=== PATIENT | female | born 1995 | race American Indian/Alaskan Native ===

== ENCOUNTER 2017-04-01 15:25 | Emergency (ER) | payer MEDICAID, OTHER ==
[2017-04-01 15:46] VITALS: O2SAT 100
--- NOTE | 2017-04-01 16:00 | ED PDOC ---
Arrival/HPI - General Chief Complaint: Female Genitourinary Time Seen by Provider: 04/01/17 15:49 Historian: Patient - History of Present Illness Narrative History of Present Illness (Text): 04/01/17 15:49 21 y/o female, pmh including UTI, allergic to motrin, , LMP 01/04/2017, found out she was about 3 days ago, started to have lower back pain yesterday and vaginal bleeding today with no fall or trauma. Aching pain, cramping sensation, had 3 pads change earlier today, no fever or chills, no chest pain or shortness of breath, no night sweat, no dizziness, no other medical or psychological complaints. Past Medical History - Provider Review Nursing Documentation Reviewed: Yes - Infectious Disease Hx of Infectious Diseases: None - Tetanus Immunization Tetanus Immunization: Unknown - Cardiac Hx Cardiac Disorders: No - Pulmonary Hx Respiratory Disorders: No - Neurological Hx Neurological Disorder: No HX Cerebrovascular Accident: No Hx Seizures: No - HEENT Hx HEENT Disorder: No - Renal Hx Renal Disorder: Yes (hydronephrosis) - Endocrine/Metabolic Hx Endocrine Disorders: No - Hematological/Oncological Hx Blood Disorders: No Hx Cancer: No - Integumentary Hx Dermatological Disorder: No - Musculoskeletal/Rheumatological Hx Musculoskeletal Disorders: No - Gastrointestinal Hx Gastrointestinal Disorders: No - Genitourinary/Gynecological Hx Genitourinary Disorders: No Hx Sexually Transmitted Diseases: No - Psychiatric Hx Depression: Yes Hx Emotional Abuse: No Hx Physical Abuse: No Hx Substance Use: No - Past Surgical History Past Surgical History: No Previous - Anesthesia Hx Anesthesia: No Hx Anesthesia Reactions: No Hx Malignant Hyperthermia: No - Suicidal Assessment Feels Threatened In Home Enviroment: No Family/Social History - Physician Review Nursing Documentation Reviewed: Yes Family/Social History: Unknown Family HX Smoking Status: Never Smoked Hx Alcohol Use: No Hx Substance Use: No Hx Substance Use Treatment: No Allergies/Home Meds Allergies/Adverse Reactions: Allergies ibuprofen Adverse Reaction (Verified 04/01/17 15:42) ANAPHYLAXIS Can not take due to kidney disease Review of Systems - Review of Systems Constitutional: absent: Fatigue, Fevers Eyes: absent: Vision Changes ENT: absent: Hearing Changes Respiratory: absent: SOB, Cough Cardiovascular: absent: Chest Pain Gastrointestinal: absent: Abdominal Pain, Nausea, Vomiting Genitourinary Female: Vaginal Discharge. absent: Dysuria, Frequency, Hematuria , Urine Output Changes, Vaginal Bleeding Musculoskeletal: Back Pain. absent: Arthralgias, Neck Pain, Joint Swelling, Myalgias Neurological: absent: Headache, Dizziness, Speech Changes, Facial Droop Physical Exam Vital Signs Reviewed: Yes Vital Signs Temp Pulse Resp BP Pulse Ox 04/01/17 15:43 97.9 F 89 17 129/74 100 Temperature: Afebrile Blood Pressure: Normal Pulse: Regular Respiratory Rate: Normal Appearance: Positive for: Well-Appearing, Non-Toxic, Comfortable Pain Distress: Mild Mental Status: Positive for: Alert and Oriented X 3 - Systems Exam Head: Present: Atraumatic, Normocephalic Pupils: Present: PERRL Extroacular Muscles: Present: EOMI Conjunctiva: Present: Normal Mouth: Present: Moist Mucous Membranes Neck: Present: Normal Range of Motion Respiratory/Chest: Present: Clear to Auscultation, Good Air Exchange. No: Respiratory Distress, Accessory Muscle Use Cardiovascular: Present: Regular Rate and Rhythm, Normal S1, S2. No: Murmurs Abdomen: Present: Normal Bowel Sounds. No: Tenderness, Distention, Peritoneal Signs, Rebound, Guarding Genitourinary/Pelvic Exam: Present: Normal External Genitalia, Cervical os Closed, Other (Female [place]: [facility]). No: Vaginal Discharge, Vaginal Bleeding, Vaginal Lesions, Adenexal Tenderness, Adenexal Mass, Cervical Motion Tendernes, Odor Back: Present: Normal Inspection. No: CVA Tenderness, Midline Tenderness, Paraspinal Tenderness, Decubitus Ulcer Upper Extremity: Present: Normal Inspection. No: Cyanosis, Edema Lower Extremity: Present: Normal Inspection. No: Edema Neurological: Present: GCS=15, Speech Normal, Motor Func Grossly Intact, Gait Normal, Memory Normal Skin: Present: Warm, Dry, Normal Color. No: Rashes Psychiatric: Present: Alert, Oriented x 3, Normal Insight, Normal Concentration Medical Decision Making ED Course and Treatment: 04/01/17 16:08 -labs/ua/beta hcg/type and screen -Transvaginal sonogram -tylenol -observe and reassess 04/01/17 18:37 -Labs are non-significant except Hgb 10.2 from 11.4, K+ 3.4, advised eat more red meat and eat more banana. -Beta hcg 717598, advised to repeat in 48 hours. -Sonogram show twins : IMPRESSION: Twin live intrauterine gestations with detected heart rates. The estimated date of delivery by ultrasound is 10/17/2017 and 10/22/2017 respectively and correspond with the clinical dates. -UA show +UTI, macrobid ordered. -Pt. does stand and heavy lifting at work which I advised her to stop and bed rest. -Discharge home with macrobid, tylenol, eat more bananas, no sexual activities and you will need pelvic rest, bed rest, elevate the leg, avoid lifting or carrying heavy objects, don't hold your urines and good hygiene, repeat beta hcg in 24-48 hours, follow up with your own pmd and obgyn within 2 days, return to the ER for any new or worsening signs or symptoms. - Lab Interpretations Lab Results: 04/01/17 14:25 04/01/17 14:25 Lab Results 04/01/17 16:30: Urine Color Yellow, Urine Appearance Sl cloudy, Urine pH 7.0, Ur Specific [place] 1.020, Urine Protein Trace H, Urine Glucose (UA) Negative, Urine Ketones Negative, Urine Blood Trace-lysed H, Urine Nitrate Negative, Urine Bilirubin Negative, Urine Urobilinogen 1.0 H, Ur Leukocyte Esterase Trace H, Urine RBC 2 - 5, Urine WBC 5 - 10, Ur Epithelial Cells 3 - 4, Urine Bacteria Mod 04/01/17 16:01: Blood Type O POSITIVE, Antibody Screen Negative, BBK History Checked Patient has bt 04/01/17 14:25: Beta HCG, Quant 747651.00 H 04/01/17 14:25: Sodium 137, Potassium 3.4 L, Chloride 106, Carbon Dioxide 23, Anion Gap 11, BUN 10, Creatinine 0.6, Est GFR ( Amer) > 60, Est GFR (Non- Af Amer) > 60, Random Glucose 75, Calcium 9.2, Total Bilirubin 0.4, AST 22, ALT 36, Alkaline Phosphatase 65, Total Protein 6.7, Albumin 3.5, Globulin 3.2, Albumin/Globulin Ratio 1.1 04/01/17 14:25: WBC 8.6, RBC 3.41 L, Hgb 10.2 L, Hct 29.9 L, MCV 87.7, MCH 29.9 , MCHC 34.1, RDW 15.6 H, Plt Count 267, MPV 9.7, Gran % 74.4 H, Lymph % (Auto) 16.8 L, [place] % (Auto) 7.4 H, Eos % (Auto) 1.2 L, Baso % (Auto) 0.2, Gran # 6.37 , Lymph # 1.4, [place] # 0.6, Eos # 0.1, Baso # 0.02 I have reviewed the lab results: Yes Interpretation: Abnormal lab values (Hgb 10.2 from 11.4, K+ 3.4, Beta hcg [id number] ) - RAD Interpretation Radiology Orders: 04/01/17 16:01 OB TRANSVAGINAL [US] Stat FINDINGS: UTERUS: Gestational sac: Twin intrauterine gestation. age (Ultrasound estimated): Twin A: 11 weeks and 4 days. heart rate is 159. Twin B: 10 weeks and 6 days. heart rate is 165. Johanne-gestational hemorrhage: None. Date of delivery (Ultrasound estimated) : Twin A: 10/17/2017 Twin B: 10/22/2017 Uterus measures 12.6 x 9.8 x 11.5 cm. Normal in size and appearance. CERVIX: Long and closed. No cervical abnormality seen. RIGHT OVARY: Not visualized. LEFT OVARY: Not visualized. FREE FLUID: None. OTHER FINDINGS: None. IMPRESSION: Twin live intrauterine gestations. The mean gestational age of Twin a is 11 weeks and 4 days and Twin B is 11 weeks and 6 days. The estimated date of delivery by ultrasound is 10/17/2017 and 10/22/2017 respectively and correspond with the clinical dates. Commercial Roofing Estimator: Radiologist - Medication Orders Current Medication Orders: Discontinued Medications Acetaminophen (Tylenol 325mg Tab) 650 mg PO STAT STA Stop: 04/01/17 16:02 Last Admin: 04/01/17 16:30 Dose: 650 mg Nitrofurantoin Macrocrystals (Macrobid) 100 mg PO STAT STA Stop: 04/01/17 17:03 Last Admin: 04/01/17 18:35 Dose: 100 mg - PA / RENAL TECHNICIAN / Resident Statement / has reviewed & agrees with the documentation as recorded. Disposition/Present on Arrival - Present on Arrival Any Indicators Present on Arrival: Yes History of DVT/PE: No History of Uncontrolled Diabetes: No Urinary Catheter: No History of Decub. Ulcer: No History Surgical Site Infection Following: None - Disposition Have Diagnosis and Disposition been Completed?: Yes Diagnosis: , Vaginal bleeding, UTI (urinary tract infection) Disposition: HOME/ ROUTINE Disposition Time: 16:09 Patient Plan: Discharge Patient Problems: Current Active Problems Problem Status Onset Acute Vaginal bleeding Acute Condition: GOOD Additional Instructions: -Discharge home with macrobid, tylenol, eat more bananas, no sexual activities and you will need pelvic rest, bed rest, elevate the leg, avoid lifting or carrying heavy objects, don't hold your urines and good hygiene, repeat beta hcg in 24-48 hours, follow up with your own pmd and obgyn within 2 days, return to the ER for any new or worsening signs or symptoms. Prescriptions: Acetaminophen [Tylenol 325mg tab] 2 tab PO QID PRN #30 tab PRN Reason: Other Nitrofurantoin Macrocrystals [Macrobid] 100 mg PO BID #14 cap Referrals: PCP,NO [Primary Care Provider] - Follow up with primary David Matthew MD [Staff Provider] - [place] up [place] [facility] [place] [facility] [place] - Follow up with primary Forms: [employer] ([place]), WORK NOTE
[2017-04-01 16:41] LABS: BASO # 0.02 K/mm3 (0.0-2.0); BASO % 0.2 % (0.0-3.0); EOS # 0.1 (0.0-0.7); EOS % 1.2 % (1.5-5.0); GRAN # 6.37 (1.4-6.5); GRAN % 74.4 % (50.0-68.0); HEMOGLOBIN 10.2 gm/dL (12.0-16.0); LYMPH # 1.4 (1.2-3.4); LYMPH % 16.8 % (22.0-35.0); MEAN CELL VOLUME 87.7 fL (80.0-105.0); MEAN CORPUSCULAR HEMOGLOBIN 29.9 pg (25.0-35.0); MEAN CORPUSCULAR HGB CONC 34.1 g/dl (31.0-37.0); MEAN PLATELET VOLUME 9.7 fl (7.0-11.0); MONO # 0.6 (0.1-0.6); MONO % 7.4 % (1.0-6.0); PLATELET COUNT 267 10^3/uL (120.0-450.0); RBC 3.41 10^6/uL (3.5-6.1); RED CELL DISTRIBUTION WIDTH 15.6 % (11.5-14.5); WHITE BLOOD COUNT 8.6 10^3/ul (4.5-11.0)
[2017-04-01 16:41] LABS: URINE BILIRUBIN NEGATIVE (NEGATIVE); URINE BLOOD TRACE-LYSED (NEGATIVE); URINE GLUCOSE (UA) NEGATIVE (NEGATIVE); URINE LEUKOCYTE ESTERASE TRACE Leu/uL (NEGATIVE); URINE NITRATE NEGATIVE (NEGATIVE); URINE PROTEIN TRACE mg/dL (<30 mg/dL)
[2017-04-01 16:56] LABS: URINE COLOR YELLOW (YELLOW)
[2017-04-01 16:58] LABS: URINE APPEARANCE SL CLOUDY (CLEAR)
[2017-04-01 17:02] LABS: ALB/GLOB RATIO 1.1 (1.1-1.8); ALBUMIN 3.5 g/dL (3.0-4.8); ALT/SGPT 36 U/L (7-56); AST/SGOT 22 U/L (15-39); BLOOD UREA NITROGEN 10 mg/dL (7-21); CALCIUM 9.2 mg/dL (8.4-10.5); GFR AFRICAN-AMERICAN > 60; GFR NON-AFRICAN AMERICAN > 60
[2017-04-01 17:10] LABS: URINE BACTERIA MOD (NEG)
--- NOTE | 2017-04-01 18:01 | US ---
PROCEDURE: OB Pelvic Ultrasound HISTORY: cramp and pain COMPARISON: None available. FINDINGS: UTERUS: Gestational sac: Twin intrauterine gestation. age (Ultrasound estimated): Twin A: 11 weeks and 4 days. heart rate is 159. Twin B: 10 weeks and 6 days. heart rate is 165. Johanne-gestational hemorrhage: None. Date of delivery (Ultrasound estimated) : Twin A: 10/17/2017 Twin B: 10/22/2017 Uterus measures 12.6 x 9.8 x 11.5 cm. Normal in size and appearance. CERVIX: Long and closed. No cervical abnormality seen. RIGHT OVARY: Not visualized. LEFT OVARY: Not visualized. FREE FLUID: None. OTHER FINDINGS: None. IMPRESSION: Twin live intrauterine gestations. The mean gestational age of Twin a is 11 weeks and 4 days and Twin B is 11 weeks and 6 days. The estimated date of delivery by ultrasound is 10/17/2017 and 10/22/2017 respectively and correspond with the clinical dates.
[2017-04-01 19:11] VITALS: BP 105/48; PULSE 75; RESP 18; TEMP 98.9
[2017-04-01 19:12] VITALS: BMI 25.8
== END 2017-04-01 19:15 | disposition home or self-care (01) ==
LOC: ED 15:25
DX: O23.31 Infections of other parts of urinary tract in pregnancy, first trimester (principal); O46.91 Antepartum hemorrhage, unspecified, first trimester; Z3A.11 11 weeks gestation of pregnancy

== ENCOUNTER 2017-04-21 09:04 | Emergency (ER) | payer MEDICAID ==
[2017-04-21 09:04] VITALS: BMI 25.8
[2017-04-21 09:13] VITALS: TEMP 98.4; O2SAT 100
[2017-04-21] MEDS ORDERED: Sodium Chloride 0.9% 1,000 ML IV SCH (09:30)
--- NOTE | 2017-04-21 10:01 | ED PDOC ---
Arrival/HPI - General Chief Complaint: Headache Time Seen by Provider: 04/21/17 09:17 Historian: Patient - History of Present Illness Narrative History of Present Illness (Text): 04/21/17 09:45 21 y/o female, pmh including brain aneurysm (as per patient she stated that she has brain aneurysm in 2013 radiology test), allergic to motrin, approx. 13 weeks with twins, c/o headache and dizziness x 1 week which she is concerning for bleeding from the brain. Pt. stated that she is scheduled for termination of on 05/27/17, no vaginal bleeding or pelvic cramp, no abdominal pain, no nausea or vomiting, no fever or chills, no dizziness, no change in vision, no palpitation, no urinary symptoms, no other medical or psychological complaints. Past Medical History - Provider Review Nursing Documentation Reviewed: Yes - Infectious Disease Hx of Infectious Diseases: None - Tetanus Immunization Tetanus Immunization: Unknown - Cardiac Hx Cardiac Disorders: No - Pulmonary Hx Respiratory Disorders: No - Neurological Hx Neurological Disorder: Yes Other/Comment: Brain Aneurysm - HEENT Hx HEENT Disorder: No - Renal Hx Renal Disorder: Yes (hydronephrosis) - Endocrine/Metabolic Hx Endocrine Disorders: No - Hematological/Oncological Hx Blood Disorders: No Hx Cancer: No - Integumentary Hx Dermatological Disorder: No - Musculoskeletal/Rheumatological Hx Musculoskeletal Disorders: No - Gastrointestinal Hx Gastrointestinal Disorders: No - Genitourinary/Gynecological Hx Genitourinary Disorders: No Hx Sexually Transmitted Diseases: No - Psychiatric Hx Depression: Yes Hx Emotional Abuse: No Hx Physical Abuse: No Hx Substance Use: No - Past Surgical History Past Surgical History: No Previous - Anesthesia Hx Anesthesia: No Hx Anesthesia Reactions: No Hx Malignant Hyperthermia: No - Suicidal Assessment Feels Threatened In Home Enviroment: No Family/Social History - Physician Review Nursing Documentation Reviewed: Yes Family/Social History: Unknown Family HX Smoking Status: Never Smoked Hx Alcohol Use: No Hx Substance Use: No Hx Substance Use Treatment: No Allergies/Home Meds Allergies/Adverse Reactions: Allergies ibuprofen Adverse Reaction (Verified 04/01/17 15:42) ANAPHYLAXIS Can not take due to kidney disease Home Medications: Home Meds Medication Instructions Recorded Confirmed Pnv No.95/Ferrous Fum/Folic AC 1 tab PO DAILY 04/21/17 04/21/17 [Prenavite] Review of Systems - Review of Systems Constitutional: absent: Fatigue, Fevers Eyes: absent: Vision Changes ENT: absent: Hearing Changes Respiratory: absent: SOB, Cough Cardiovascular: absent: Chest Pain Gastrointestinal: absent: Abdominal Pain, Diarrhea, Nausea, Vomiting Skin: absent: Rash, Pruritis Neurological: Headache, Dizziness. absent: Gait Changes, Speech Changes, Facial Droop Physical Exam Vital Signs Reviewed: Yes Vital Signs Temp Pulse Resp BP Pulse Ox 04/21/17 12:12 79 18 116/75 100 04/21/17 11:04 89 18 112/71 100 04/21/17 09:13 98.4 F 98 H 16 114/75 100 Temperature: Afebrile Blood Pressure: Normal Pulse: Regular Respiratory Rate: Normal Appearance: Positive for: Well-Appearing, Non-Toxic Pain Distress: Moderate Mental Status: Positive for: Alert and Oriented X 3 - Systems Exam Head: Present: Atraumatic, Normocephalic, Other (no temporal artery tenderness) . No: Tenderness, Contusion, Swelling, Ecchymosis, Abrasion, Laceration Pupils: Present: PERRL Extroacular Muscles: Present: EOMI Conjunctiva: Present: Normal Ears: Present: NORMAL TM, Normal Canal Mouth: Present: Moist Mucous Membranes Pharnyx: No: ERYTHEMA, EXUDATE, TONSILS ENLARGED Neck: Present: Normal Range of Motion, Trachea Midline. No: Meningeal Signs, MIDLINE TENDERNESS, Lymphadenopathy Respiratory/Chest: Present: Clear to Auscultation, Good Air Exchange. No: Respiratory Distress, Accessory Muscle Use Cardiovascular: Present: Regular Rate and Rhythm, Normal S1, S2. No: Murmurs Abdomen: Present: Normal Bowel Sounds. No: Tenderness, Distention, Peritoneal Signs Back: Present: Normal Inspection Upper Extremity: Present: Normal Inspection. No: Cyanosis, Edema Lower Extremity: Present: Normal Inspection. No: Edema Neurological: Present: GCS=15, Speech Normal, Motor Func Grossly Intact, Gait Normal, Memory Normal, Other (no drift) Skin: Present: Warm, Dry, Normal Color. No: Rashes Psychiatric: Present: Alert, Oriented x 3, Normal Insight, Normal Concentration Medical Decision Making ED Course and Treatment: 04/21/17 09:45 -I discussed with Dr. Jose which is the radiologist suggest CT head without contrast is best to rule out bleed but there is risk for termination and /genetic defects, risk temination/genetic defect/pain/ and risk including rule out head bleed discussed with the patient which she wants to proceed with CT head without contrast, general consent obtained, discussed with the CT head. Entire situation witnessed by the BICYCLE REPAIR TECHNICIAN Suzi. I discussed with Dr. Calle as well and agreed with the patient's decision. -Labs/ua -CT head -IVF/benadryl/tylenol -Observe and reassess 04/21/17 12:29 -labs are non-significant except beta hcg 79736 (approx. 12-16 weeks base on the lab reference) and glucose 68 (asymptomatic, food and juice given) -UA show +UTI -CT Head show no acute intracranial finding. -Headache resolved with the medication given -Discharge home with macrobid, tylenol, stay hydrated, bed rest, follow up with your own pmd and obgyn within 2 days, return to the ER for any new or worsening signs or symptoms. - Lab Interpretations Lab Results: 04/21/17 10:06 04/21/17 11:30 Lab Results 04/21/17 11:30: Sodium 138, Potassium 3.9, Chloride 107, Carbon Dioxide 23, Anion Gap 12, BUN 8, Creatinine 0.5, Est GFR ( Amer) > 60, Est GFR (Non- Af Amer) > 60, Random Glucose 68 L, Calcium 9.2, Total Bilirubin 0.3, AST 16, ALT 30, Alkaline Phosphatase 96, Total Protein 6.8, Albumin 3.6, Globulin 3.1, Albumin/Globulin Ratio 1.2 04/21/17 10:06: Beta HCG, Quant [id number] H 04/21/17 10:06: Urine Color Yellow, Urine Appearance Sl cloudy, Urine pH 6.5, Ur Specific [place] 1.020, Urine Protein 30 H, Urine Glucose (UA) Negative, Urine Ketones Negative, Urine Blood Negative, Urine Nitrate Negative, Urine Bilirubin Negative, Urine Urobilinogen 1.0 H, Ur Leukocyte Esterase Small H, Urine RBC Negative, Urine WBC Tntc, Ur Epithelial Cells 4 - 5, Urine Bacteria Many 04/21/17 10:06: WBC 6.6 D, RBC 3.60, Hgb 10.7 L, Hct 31.9 L, MCV 88.6, MCH 29.7 , MCHC 33.5, RDW 15.1 H, Plt Count 280, MPV 10.6, Gran % 71.3 H, Lymph % (Auto) 18.5 L, [place] % (Auto) 7.8 H, Eos % (Auto) 2.1, Baso % (Auto) 0.3, Gran # 4.67, Lymph # 1.2, [place] # 0.5, Eos # 0.1, Baso # 0.02 I have reviewed the lab results: Yes Interpretation: Abnormal lab values (+UTI, beta hcg 32721 (approx. 12-16 weeks base on the lab reference)) - RAD Interpretation Radiology Orders: 04/21/17 09:41 HEAD W/O CONTRAST [CT] Stat No acute intracranial findings. Cop: Radiologist - Medication Orders Current Medication Orders: Sodium Chloride (Sodium Chloride 0.9%) 1,000 mls @ 200 mls/hr IV .Q5H AMY Last Admin: 04/21/17 10:08 Dose: 200 mls/hr Discontinued Medications Acetaminophen (Tylenol 325mg Tab) 650 mg PO STAT STA Stop: 04/21/17 10:03 Last Admin: 04/21/17 10:48 Dose: 650 mg Diphenhydramine HCl (Benadryl) 50 mg IVP STAT STA Stop: 04/21/17 10:03 Last Admin: 04/21/17 10:48 Dose: 50 mg - PA / ASSEMBLY LINE BRAZER / Resident Statement / has reviewed & agrees with the documentation as recorded. Disposition/Present on Arrival - Present on Arrival Any Indicators Present on Arrival: No History of DVT/PE: No History of Uncontrolled Diabetes: No Urinary Catheter: No History of Decub. Ulcer: No History Surgical Site Infection Following: None - Disposition Have Diagnosis and Disposition been Completed?: Yes Diagnosis: Urinary tract infection, Headache Disposition: HOME/ ROUTINE Disposition Time: 11:38 Patient Plan: Discharge Patient Problems: Current Active Problems Problem Status Onset Headache Acute Urinary tract infection Acute Condition: IMPROVED Additional Instructions: -Discharge home with macrobid, tylenol, stay hydrated, bed rest, follow up with your own pmd and obgyn within 2 days, return to the ER for any new or worsening signs or symptoms. Prescriptions: Acetaminophen [Tylenol 325mg tab] 2 tab PO QID PRN #30 tab PRN Reason: Other Nitrofurantoin Macrocrystals [Macrobid] 100 mg PO BID #14 cap Referrals: [employer] Remayela, [Primary Care Provider] - Follow up with primary Lucas Lewis DO [Staff Provider] - [place] up [place] [facility] [place] [facility] [place] - Follow up with primary Forms: [employer] ([place]), WORK NOTE
[2017-04-21] MEDS ORDERED: DiphenhydrAMINE 50 mg/ml Inj IVP STA (10:02)
[2017-04-21 10:12] LABS: PH,URINE 6.5 (4.7-8.0); URINE BILIRUBIN NEGATIVE (NEGATIVE); URINE BLOOD NEGATIVE (NEGATIVE); URINE GLUCOSE (UA) NEGATIVE (NEGATIVE); URINE LEUKOCYTE ESTERASE SMALL Leu/uL (NEGATIVE); URINE NITRATE NEGATIVE (NEGATIVE); URINE PROTEIN 30 mg/dL (<30 mg/dL)
[2017-04-21 10:14] LABS: BASO # 0.02 K/mm3 (0.0-2.0); BASO % 0.3 % (0.0-3.0); EOS # 0.1 (0.0-0.7); EOS % 2.1 % (1.5-5.0); GRAN # 4.67 (1.4-6.5); GRAN % 71.3 % (50.0-68.0); HEMOGLOBIN 10.7 g/dL (12.0-16.0); LYMPH # 1.2 (1.2-3.4); LYMPH % 18.5 % (22.0-35.0); MEAN CELL VOLUME 88.6 fl (80.0-105.0); MEAN CORPUSCULAR HEMOGLOBIN 29.7 pg (25.0-35.0); MEAN CORPUSCULAR HGB CONC 33.5 g/dl (31.0-37.0); MEAN PLATELET VOLUME 10.6 fl (7.0-11.0); MONO # 0.5 (0.1-0.6); MONO % 7.8 % (1.0-6.0); PLATELET COUNT 280 10^3/uL (120.0-450.0); RED CELL DISTRIBUTION WIDTH 15.1 % (11.5-14.5); WHITE BLOOD COUNT 6.6 10^3/ul (4.5-11.0)
[2017-04-21 10:16] LABS: URINE APPEARANCE SL CLOUDY (CLEAR); URINE COLOR YELLOW (YELLOW)
[2017-04-21 10:19] LABS: URINE BACTERIA MANY (NEG); URINE RBC NEGATIVE /hpf (0-2); URINE WBC TNTC /hpf (0-6)
--- NOTE | 2017-04-21 10:37 | CT ---
PROCEDURE: CT HEAD WITHOUT CONTRAST. HISTORY: subjective pt. aneuysm, headache x 1 week. Shield! COMPARISON: None available. TECHNIQUE: Axial computed tomography images were obtained through the head/brain without intravenous contrast. Radiation dose: Total exam DLP = 723.75 mGy-cm. This CT exam was performed using one or more of the following dose reduction techniques: Automated exposure control, adjustment of the mA and/or kV according to patient size, and/or use of iterative reconstruction technique. FINDINGS: HEMORRHAGE: No intracranial hemorrhage. BRAIN: No mass effect or edema. No atrophy or chronic microvascular ischemic changes. VENTRICLES: Unremarkable. No hydrocephalus. CALVARIUM: Unremarkable. PARANASAL SINUSES: Unremarkable as visualized. No significant inflammatory changes. MASTOID AIR CELLS: Unremarkable as visualized. No inflammatory changes. OTHER FINDINGS: None. IMPRESSION: No evidence of acute intracranial hemorrhage intracranial collection mass effect or midline shift. If clinically warranted further assessment by CTA or MRA of the brain may be obtained to evaluate for intracranial aneurysm.
[2017-04-21 11:23] VITALS: RESP 18
[2017-04-21 12:11] LABS: ALB/GLOB RATIO 1.2 (1.1-1.8); ALBUMIN 3.6 g/dL (3.0-4.8); ALT/SGPT 30 U/L (7-56); AST/SGOT 16 U/L (15-39); BLOOD UREA NITROGEN 8 mg/dL (7-21); CALCIUM 9.2 mg/dL (8.4-10.5); GFR AFRICAN-AMERICAN > 60; GFR NON-AFRICAN AMERICAN > 60
[2017-04-21 13:22] VITALS: BP 118/78; PULSE 75
== END 2017-04-21 14:05 | disposition home or self-care (01) ==
LOC: ED 09:04
DX: O23.41 Unspecified infection of urinary tract in pregnancy, first trimester (principal); O26.891 Other specified pregnancy related conditions, first trimester; R51 Headache; Z3A.13 13 weeks gestation of pregnancy
CPT/HCPCS: 70450; 80053; 81001; 84702; 85025; 87086; 87181; 96374; 99285; J1200; J7040

== ENCOUNTER 2017-08-09 12:31 | Emergency (ER) | payer MEDICAID, OTHER ==
[2017-08-09 12:31] VITALS: BMI 25.8
[2017-08-09 13:05] VITALS: BP 129/68; PULSE 78; RESP 16; TEMP 98.7; O2SAT 97
[2017-08-09] MEDS ORDERED: Sodium Chloride 0.9% 1,000 ML IV STA (13:10)
[2017-08-09 13:31] LABS: URINE BILIRUBIN NEGATIVE (NEGATIVE); URINE BLOOD NEGATIVE (NEGATIVE); URINE GLUCOSE (UA) NEGATIVE (NEGATIVE); URINE KETONE NEGATIVE (NEGATIVE); URINE LEUKOCYTE ESTERASE NEGATIVE Leu/uL (NEGATIVE); URINE PROTEIN NEGATIVE mg/dL (<30 mg/dL)
[2017-08-09 13:37] LABS: URINE APPEARANCE CLEAR (CLEAR); URINE COLOR YELLOW (YELLOW)
--- NOTE | 2017-08-09 13:38 | ED PDOC ---
Arrival/HPI - General Chief Complaint: Male Genitourinary Time Seen by Provider: 08/09/17 12:35 Historian: Patient - History of Present Illness Narrative History of Present Illness (Text): 08/09/17 13:20 A 21 year old female, whose past medical history includes brain aneurysm, hydronephrosis, and depression, presents to the emergency department complaining of suprapubic right pain for several weeks. Patient reports completing UTI antibiotics. Patient denies any fever, nausea, vomiting, or any other complaints. No PMD Past Medical History - Provider Review Nursing Documentation Reviewed: Yes - Infectious Disease Hx of Infectious Diseases: None - Tetanus Immunization Tetanus Immunization: Unknown - Reproductive Menopause: No - Cardiac Hx Cardiac Disorders: No - Pulmonary Hx Respiratory Disorders: No - Neurological Hx Neurological Disorder: Yes Other/Comment: Brain Aneurysm - HEENT Hx HEENT Disorder: No - Renal Hx Renal Disorder: Yes (hydronephrosis) - Endocrine/Metabolic Hx Endocrine Disorders: No - Hematological/Oncological Hx Blood Disorders: No Hx Cancer: No - Integumentary Hx Dermatological Disorder: No - Musculoskeletal/Rheumatological Hx Musculoskeletal Disorders: No - Gastrointestinal Hx Gastrointestinal Disorders: No - Genitourinary/Gynecological Hx Genitourinary Disorders: No Hx Sexually Transmitted Diseases: No - Psychiatric Hx Depression: Yes Hx Emotional Abuse: No Hx Physical Abuse: No Hx Substance Use: No - Past Surgical History Past Surgical History: No Previous - Anesthesia Hx Anesthesia: No Hx Anesthesia Reactions: No Hx Malignant Hyperthermia: No - Suicidal Assessment Feels Threatened In Home Enviroment: No Family/Social History - Physician Review Nursing Documentation Reviewed: Yes Family/Social History: No Known Family HX Smoking Status: Never Smoked Hx Alcohol Use: No Hx Substance Use: No Hx Substance Use Treatment: No Allergies/Home Meds Allergies/Adverse Reactions: Allergies ibuprofen Adverse Reaction (Verified 08/09/17 13:07) ANAPHYLAXIS Can not take due to kidney disease Home Medications: Home Meds Medication Instructions Recorded Confirmed No Known Home Med 08/09/17 08/09/17 Review of Systems - Physician Review All systems were reviewed & negative as marked: Yes - Review of Systems Constitutional: absent: Fevers Gastrointestinal: Abdominal Pain (suprapubic region). absent: Nausea, Vomiting Physical Exam Vital Signs Reviewed: Yes Vital Signs Temp Pulse Resp BP Pulse Ox 08/09/17 12:56 98.7 F 78 16 129/68 97 Temperature: Afebrile Blood Pressure: Normal Pulse: Regular Respiratory Rate: Normal Appearance: Positive for: Well-Appearing Pain Distress: None Mental Status: Positive for: Alert and Oriented X 3 - Systems Exam Head: Present: Atraumatic, Normocephalic Pupils: Present: PERRL Extroacular Muscles: Present: EOMI Conjunctiva: Present: Normal Mouth: Present: Moist Mucous Membranes Neck: Present: Normal Range of Motion Respiratory/Chest: Present: Clear to Auscultation, Good Air Exchange. No: Respiratory Distress, Accessory Muscle Use Cardiovascular: Present: Regular Rate and Rhythm, Normal S1, S2. No: Murmurs Abdomen: Present: Tenderness (suprapubic and RLQ tenderness) Back: Present: Normal Inspection Upper Extremity: Present: Normal Inspection. No: Cyanosis, Edema Lower Extremity: Present: Normal Inspection. No: Edema Neurological: Present: GCS=15, CN II-XII Intact, Speech Normal Skin: Present: Warm, Dry, Normal Color. No: Rashes Psychiatric: Present: Alert, Oriented x 3, Normal Insight, Normal Concentration Medical Decision Making ED Course and Treatment: 08/09/17 13:25 Impression: 21 year old female with suprapubic pain. Physical exam shows suprapubic and RLQ tenderness. Plan: -- Transvaginal Ultrasound -- Labs -- Tylenol -- IV Fluids -- Urinalysis -- Reassess and disposition Prior Visits: Notes and results from previous visits were reviewed. Patient was last seen in the emergency department on 04/21/2017 for headache and dizziness. Patient was d /c home. Progress Notes: 08/09/2017 14:10 Transvaginal Ultrasound FINDINGS: UTERUS: Measures 8.1 x 4.6 by 7.0 cm. Normal in size and anteverted appearance. No fibroid or other mass lesion seen. ENDOMETRIUM: Measures 5.8 mm in diameter. Unremarkable. CERVIX: No cervical abnormality identified. RIGHT OVARY: Measures 4.3 x 2.8 x 2.9 cm. No solid mass. Normal flow. 1.6 x 2.4 x 1.1 and 1.7 x 1.6 x 1.3 cm right ovarian cysts. LEFT OVARY: Measures 2.4 x 2.3 x 1.7 cm. No solid mass. Normal flow. FREE FLUID: No significant free fluid noted. OTHER FINDINGS: None. IMPRESSION: Right ovarian cysts 2-both simple type. The largest measures up to 2.4 cm. Physiological cysts favored otherwise unremarkable. Dictator: Darcy Pyle MD 08/09/17 13:26 Patient with minimal rlq pain, mostly adenxal pain. was offered CT scan but denied to have one at this time. 08/09/17 16:17 - Lab Interpretations Lab Results: 08/09/17 13:25 08/09/17 13:25 Lab Results 08/09/17 13:25: Sodium 142, Potassium 4.7, Chloride 106, Carbon Dioxide 26, Anion Gap 15, BUN 17, Creatinine 0.7, Est GFR ( Amer) > 60, Est GFR (Non- Af Amer) > 60, Random Glucose 88, Calcium 10.1, Total Bilirubin 0.5, AST 34, ALT 46, Alkaline Phosphatase 63, Total Protein 7.6, Albumin 4.3, Globulin 3.3, Albumin/Globulin Ratio 1.3, Lipase 186 08/09/17 13:25: PT 12.0, INR 1.10 H, APTT 30.5 08/09/17 13:25: WBC 4.9 D, RBC 3.79, Hgb 10.9 L, Hct 34.1 L, MCV 90.0, MCH 28.8 , MCHC 32.0, RDW 15.5 H, Plt Count 336, MPV 10.4, Gran % 53.0, Lymph % (Auto) 36.9 H, [place] % (Auto) 6.9 H, Eos % (Auto) 2.4, Baso % (Auto) 0.8, Gran # 2.60, Lymph # 1.8, [place] # 0.3, Eos # 0.1, Baso # 0.04 08/09/17 13:20: Urine Color Yellow, Urine Appearance Clear, Urine pH 6.0, Ur Specific [place] 1.025, Urine Protein Negative, Urine Glucose (UA) Negative, Urine Ketones Negative, Urine Blood Negative, Urine Nitrate Negative, Urine Bilirubin Negative, Urine Urobilinogen 1.0 H, Ur Leukocyte Esterase Negative, Urine HCG, Qual Negative I have reviewed the lab results: Yes - RAD Interpretation Radiology Orders: 08/09/17 13:10 TRANSVAGINAL [US] Stat - Medication Orders Current Medication Orders: Discontinued Medications Acetaminophen (Tylenol 325mg Tab) 975 mg PO STAT STA Stop: 08/09/17 13:11 Last Admin: 08/09/17 13:32 Dose: 975 mg Sodium Chloride (Sodium Chloride 0.9%) 1,000 mls @ 999 mls/hr IV .Q1H1M STA Stop: 08/09/17 14:10 Last Admin: 08/09/17 13:26 Dose: 999 mls/hr eMAR Start Stop Document 08/09/17 13:26 GMD (Rec: 08/09/17 13:27 GMD [facility] [id number]) Intravenous Solution Start Date 08/09/17 Start Time 13:27 End Date 08/09/17 End time 14:28 Total Infusion Time 61 - Scribe Statement The provider has reviewed the documentation as recorded by the Alethea Mckeon Provider Scribe Attestation: All medical record entries made by the Scribe were at my direction and personally dictated by me. I have reviewed the chart and agree that the record accurately reflects my personal performance of the history, physical exam, medical decision making, and the department course for this patient. I have also personally directed, reviewed, and agree with the discharge instructions and disposition. Disposition/Present on Arrival - Present on Arrival Any Indicators Present on Arrival: No History of DVT/PE: No History of Uncontrolled Diabetes: No Urinary Catheter: No History of Decub. Ulcer: No History Surgical Site Infection Following: None - Disposition Have Diagnosis and Disposition been Completed?: Yes Diagnosis: Abdominal pain, Ovarian cyst Disposition: HOME/ ROUTINE Disposition Time: 04:00 Condition: STABLE Discharge Instructions (ExitCare): Ovarian Cyst (ED), Acute Abdominal Pain (ED) Additional Instructions: please follow up with your doctor. return to er with worsening symptoms or concerns. Referrals: [facility] [Outside] - Follow up with primary [facility] [Outside] - Follow up with [facility] [Outside] - Follow up with primary Pola Lang [Medical Doctor] - Follow up with primary
[2017-08-09 13:45] LABS: BASO # 0.04 K/mm3 (0.0-2.0); BASO % 0.8 % (0.0-3.0); EOS # 0.1 (0.0-0.7); EOS % 2.4 % (1.5-5.0); GRAN # 2.6 (1.4-6.5); HEMATOCRIT 34.1 % (36.0-48.0); LYMPH # 1.8 (1.2-3.4); LYMPH % 36.9 % (22.0-35.0); MEAN CORPUSCULAR HEMOGLOBIN 28.8 pg (25.0-35.0); MEAN PLATELET VOLUME 10.4 fl (7.0-11.0); MONO # 0.3 (0.1-0.6); MONO % 6.9 % (1.0-6.0); RED CELL DISTRIBUTION WIDTH 15.5 % (11.5-14.5); WHITE BLOOD COUNT 4.9 10^3/ul (4.5-11.0)
[2017-08-09 13:51] LABS: ALB/GLOB RATIO 1.3 (1.1-1.8); ALKALINE PHOSPHATASE 63 U/L (38-126); ALT/SGPT 46 U/L (7-56); AST/SGOT 34 U/L (14-36); BILIRUBIN,TOTAL 0.5 mg/dL (0.2-1.3); BLOOD UREA NITROGEN 17 mg/dL (7-21); CALCIUM 10.1 mg/dL (8.4-10.5); CARBON DIOXIDE 26 mmol/L (21-33); CHLORIDE 106 mmol/L (98-107); GFR AFRICAN-AMERICAN > 60; GLUCOSE,RANDOM 88 mg/dL (70-110); LIPASE 186 U/L (23-300); TOTAL PROTEIN 7.6 g/dL (5.8-8.3)
[2017-08-09 14:08] LABS: INR 1.1 (0.93-1.08); PARTIAL THROMBOPLASTIN TIME 30.5 Seconds (25.1-36.5)
[2017-08-09 14:11] LABS: POTASSIUM 4.7 mmol/L (3.6-5.0); SODIUM 142 mmol/L (132-148)
--- NOTE | 2017-08-09 14:11 | US ---
HISTORY: suprapubic pain 21-year-old female. LMP 08/04/2017 COMPARISON: None available. TECHNIQUE: Transvaginal FINDINGS: UTERUS: Measures 8.1 x 4.6 by 7.0 cm. Normal in size and anteverted appearance. No fibroid or other mass lesion seen. ENDOMETRIUM: Measures 5.8 mm in diameter. Unremarkable. CERVIX: No cervical abnormality identified. RIGHT OVARY: Measures 4.3 x 2.8 x 2.9 cm. No solid mass. Normal flow. 1.6 x 2.4 x 1.1 and 1.7 x 1.6 x 1.3 cm right ovarian cysts LEFT OVARY: Measures 2.4 x 2.3 x 1.7 cm. No solid mass. Normal flow. FREE FLUID: No significant free fluid noted. OTHER FINDINGS: None. IMPRESSION: Right ovarian cysts 2-both simple type. The largest measures up to 2.4 cm. Physiological cysts favored otherwise unremarkable
== END 2017-08-09 15:40 | disposition home or self-care (01) ==
LOC: ED 12:31
DX: N83.201 Unspecified ovarian cyst, right side (principal); R10.9 Unspecified abdominal pain
CPT/HCPCS: 76830; 80053; 81003; 83690; 84703; 85025; 85610; 85730; 96360; 99283; J7040

== ENCOUNTER 2017-12-31 16:19 | Emergency (ER) | payer BC, MEDICAID, OTHER ==
[2017-12-31 16:34] VITALS: RESP 18; O2SAT 100; BMI 28.1
[2017-12-31] MEDS ORDERED: Tmp-Smz 800 mg-160 mg DS Tab PO STA (16:56)
[2017-12-31] MEDS ORDERED: Lidocaine/Epi 1% 1:100000 20 ML IJ ONE (17:05)
[2017-12-31] MEDS ORDERED: Oxycodone/Acetaminophen 5/325 mg Tab PO STA (17:42)
--- NOTE | 2017-12-31 17:55 | ED PDOC ---
Arrival/HPI - General Chief Complaint: Abnormal Skin Integrity Time Seen by Provider: 12/31/17 16:46 Historian: Patient - History of Present Illness Narrative History of Present Illness (Text): 12/31/17 18:35 22yr old female presents today with a 3 day history of lower back pain. pt states she noticed a small bump in the lower back that has been gradually increasing over the past 3 days. pt denies fever/chills. no cp or sob. no vomiting/diarrhea. no abdominal pain. pt denies trauma or injury. pt denies numbness, weakness, tingling in the extremities. no other complaints. Past Medical History - Provider Review Nursing Documentation Reviewed: Yes - Travel History Have you recently traveled outside [place] w/in the past 3 mons?: No - Infectious Disease Hx of Infectious Diseases: None - Tetanus Immunization Tetanus Immunization: Unknown - Reproductive Menopause: No - Cardiac Hx Cardiac Disorders: No Hx Angina: No - Pulmonary Hx Respiratory Disorders: No - Neurological Hx Neurological Disorder: Yes Other/Comment: Brain Aneurysm - HEENT Hx HEENT Disorder: No - Renal Hx Renal Disorder: Yes (hydronephrosis) - Endocrine/Metabolic Hx Endocrine Disorders: No - Hematological/Oncological Hx Blood Disorders: No Hx Cancer: No - Integumentary Hx Dermatological Disorder: No - Musculoskeletal/Rheumatological Hx Musculoskeletal Disorders: No - Gastrointestinal Hx Gastrointestinal Disorders: No - Genitourinary/Gynecological Hx Genitourinary Disorders: No Hx Sexually Transmitted Diseases: No - Psychiatric Hx Depression: Yes Hx Emotional Abuse: No Hx Physical Abuse: No Hx Substance Use: No - Past Surgical History Past Surgical History: No Previous - Anesthesia Hx Anesthesia: No Hx Anesthesia Reactions: No Hx Malignant Hyperthermia: No - Suicidal Assessment Feels Threatened In Home Enviroment: No Family/Social History - Physician Review Nursing Documentation Reviewed: Yes Family/Social History: Unknown Family HX Smoking Status: Never Smoked Hx Alcohol Use: No Hx Substance Use: No Hx Substance Use Treatment: No Allergies/Home Meds Allergies/Adverse Reactions: Allergies No Known Allergies Allergy (Verified 12/31/17 16:46) Review of Systems - Review of Systems Constitutional: absent: Fatigue, Fevers Respiratory: absent: SOB, Cough Cardiovascular: absent: Chest Pain, Palpitations Gastrointestinal: absent: Abdominal Pain, Nausea, Vomiting Musculoskeletal: Back Pain. absent: Arthralgias, Neck Pain Skin: Abscess Neurological: absent: Headache, Dizziness Psychiatric: absent: Anxiety, Depression Physical Exam Vital Signs Reviewed: Yes Vital Signs Temp Pulse Resp BP Pulse Ox 12/31/17 16:33 98.2 F 81 18 106/46 L 100 Temperature: Afebrile Blood Pressure: Normal Pulse: Regular Respiratory Rate: Normal Appearance: Positive for: Well-Appearing, Non-Toxic, Comfortable Pain Distress: None Mental Status: Positive for: Alert and Oriented X 3 - Systems Exam Head: Present: Atraumatic Mouth: Present: Moist Mucous Membranes Neck: Present: Normal Range of Motion Respiratory/Chest: Present: Clear to Auscultation, Good Air Exchange. No: Respiratory Distress, Accessory Muscle Use Cardiovascular: Present: Regular Rate and Rhythm, Normal S1, S2. No: Murmurs Abdomen: No: Tenderness, Rebound, Guarding Back: Present: Normal Inspection. No: CVA Tenderness, Midline Tenderness, Paraspinal Tenderness Neurological: Present: GCS=15, Speech Normal Skin: Present: Warm, Dry, Normal Color, Abscess (buttock crease; there is a area of erythema and fluctuance noted along the superior aspect; + tenderness; + minimal erythema. ) Psychiatric: Present: Alert, Oriented x 3 Medical Decision Making ED Course and Treatment: 12/31/17 18:43 Patient is nontoxic well-appearing in no distress. Vital signs are stable. toradol IM keflex po Bactrim DS p.o. pt refused percocet for pain. I&D performed pt reassessment; pt feeling better after medications; vitals stable. Patient was advised to use warm compresses warm soaks return to the emergency room in 2 days for packing removal. return immediately if symptoms worsen persist or if new symptoms develop. The patient was advised to take medications as prescribed Patient verbalizes understanding of discharge instructions and need for immediate followup. all aspects of this case were discussed the attending of record. Impression: Abscess, pilonidal Motrin one tablet every 6 hours as needed for pain keflex; 1 capsule 4 times daily x 7 days. Bactrim DS: One tablet twice daily x7 days Warm compresses and warm soaks frequently Return in 2 days for packing removal and wound check Follow up with the surgeon within the next 2 days. Return immediately if symptoms worsen persist or if new symptoms develop: High fevers, increasing pain, increasing redness, swelling or if any other concerning symptoms develop. - Medication Orders Current Medication Orders: Discontinued Medications Cephalexin Monohydrate (Keflex) 500 mg PO STAT STA PRN Reason: Protocol Stop: 12/31/17 16:57 Last Admin: 12/31/17 17:25 Dose: 500 mg Ketorolac Tromethamine (Toradol) 60 mg IM STAT STA Stop: 12/31/17 17:02 Last Admin: 12/31/17 17:25 Dose: 60 mg MAR Pain Assessment Document 12/31/17 17:25 (Rec: 12/31/17 17:25 [id number] Pain Reassessment Is this a pain reassessment? No IM Administration Charges Document 12/31/17 17:25 (Rec: 12/31/17 17:25 [id number] Charges for Administration # of IM Administrations 1 Lidocaine/Epinephrine (Lidocaine/Epi 1% [id number] 20 Ml) 5 ml IJ ONCE ONE Stop: 12/31/17 17:06 Last Admin: 12/31/17 17:23 Dose: 5 ml Trimethoprim/Sulfamethoxazole (Bactrim Ds Tab) 1 tab PO STAT STA PRN Reason: Protocol Stop: 12/31/17 16:57 Last Admin: 12/31/17 17:25 Dose: 1 tab Procedures - Incision and Drainage Blade Size: 11 I & D Procedure: sterile dressing applied, gauze wick placed Progress: buttock abscess; area prepped and draped with sterile technique; 3cc of 1% lidocaine with epi. adequate anesthesia. 1cm incision made over central fluctuance. moderate amount of purulent discharge released; wound explored for loculations. 1/4in sterile packing placed. dressing applied. pt tolerated procedure well. no complications. Disposition/Present on Arrival - Present on Arrival Any Indicators Present on Arrival: No History of DVT/PE: No History of Uncontrolled Diabetes: No Urinary Catheter: No History of Decub. Ulcer: No History Surgical Site Infection Following: None - Disposition Have Diagnosis and Disposition been Completed?: Yes Diagnosis: Pilonidal abscess Disposition: HOME/ ROUTINE Disposition Time: 17:42 Patient Plan: Discharge Patient Problems: Current Active Problems Problem Status Onset Pilonidal abscess Acute Condition: GOOD Discharge Instructions (ExitCare): Abscess Incision and Drainage (DC), Pilonidal Cyst Additional Instructions: Motrin one tablet every 6 hours as needed for pain keflex; 1 capsule 4 times daily x 7 days. Bactrim DS: One tablet twice daily x7 days Warm compresses and warm soaks frequently Return in 2 days for packing removal and wound check Follow up with the surgeon within the next 2 days. Return immediately if symptoms worsen persist or if new symptoms develop: High fevers, increasing pain, increasing redness, swelling or if any other concerning symptoms develop. Prescriptions: Cephalexin [Keflex] 500 mg PO QID #28 capsule Ibuprofen [Motrin] 600 mg PO Q6H PRN #20 tab PRN Reason: pain/fever reduction Sulfamethoxazole/Trimethoprim [Bactrim DS 800 mg-160 mg] 1 tab PO BID #14 tab Referrals: Jose Juan Burt MD [Primary Care Provider] - Follow up with primary Lit Arthur MD [Staff Provider] - Follow up with primary Forms: [facility] ([place]), WORK NOTE
[2017-12-31 19:17] VITALS: BP 138/76; PULSE 76; TEMP 98.7
== END 2017-12-31 19:05 | disposition home or self-care (01) ==
LOC: ED 16:19
DX: L05.01 Pilonidal cyst with abscess (principal)
CPT/HCPCS: 10080; 96372; 99282; J1885

== ENCOUNTER 2018-01-03 12:31 | Emergency (ER) | payer MEDICAID, OTHER ==
[2018-01-03 13:04] VITALS: BMI 33.5
--- NOTE | 2018-01-03 13:31 | ED PDOC ---
Arrival/HPI - General Chief Complaint: Wound Check Time Seen by Provider: 01/03/18 13:30 Historian: Patient - History of Present Illness Narrative History of Present Illness (Text): 01/03/18 13:31 Patient is a 22 year old female whose past medical history includes cyst removal , and presents to the Emergency department for wound check s/p I&D. Patient underwent I&D two days ago and would like to have her wound checked and packing removed. She has been compliant with her antibiotic regimen. She denies experiencing any fever or chills. Time/Duration: Other (Cyst removal 2 days ago) Context: Home Past Medical History - Infectious Disease Hx of Infectious Diseases: None - Tetanus Immunization Tetanus Immunization: Unknown - Cardiac Hx Cardiac Disorders: No Hx Angina: No - Pulmonary Hx Respiratory Disorders: No - Neurological Hx Neurological Disorder: Yes Other/Comment: Brain Aneurysm - HEENT Hx HEENT Disorder: No - Renal Hx Renal Disorder: Yes (hydronephrosis) - Endocrine/Metabolic Hx Endocrine Disorders: No - Hematological/Oncological Hx Blood Disorders: No Hx Cancer: No - Integumentary Hx Dermatological Disorder: No - Musculoskeletal/Rheumatological Hx Musculoskeletal Disorders: No - Gastrointestinal Hx Gastrointestinal Disorders: No - Genitourinary/Gynecological Hx Genitourinary Disorders: No Hx Sexually Transmitted Diseases: No - Psychiatric Hx Depression: Yes Hx Emotional Abuse: No Hx Physical Abuse: No Hx Substance Use: No - Past Surgical History Past Surgical History: No Previous - Anesthesia Hx Anesthesia: No Hx Anesthesia Reactions: No Hx Malignant Hyperthermia: No - Suicidal Assessment Feels Threatened In Home Enviroment: No Family/Social History Family/Social History: No Known Family HX Smoking Status: Never Smoked Hx Alcohol Use: No Hx Substance Use: No Hx Substance Use Treatment: No Allergies/Home Meds Allergies/Adverse Reactions: Allergies No Known Allergies Allergy (Verified 01/03/18 13:13) Review of Systems - Physician Review All systems were reviewed & negative as marked: Yes - Review of Systems Constitutional: absent: Fevers Respiratory: absent: SOB Physical Exam - Physical Exam Narrative Physical Exam (Text): 01/03/18 13:31 Constitutional: No acute distress. Head: Normocephalic. Atraumatic. Eyes: PERRL. ENT: Moist mucous membranes. Neck: Supple. Cardiovascular: Regular rate. Chest: No tenderness. Respiratory: Clear to auscultation bilaterally. GI: Soft. Nontender. Nondistended. Back: No CVA tenderness. Musculoskeletal: No tenderness or swelling of extremities. Skin: No rash. Wound at midline gluteal cleft. Purulent drainage. No surrounding induration or erythema. Neurologic: Alert, no focal deficit. Vital Signs Pulse Resp BP Pulse Ox 01/03/18 13:51 66 17 121/78 100 01/03/18 13:05 67 17 120/82 99 Mental Status: Positive for: Alert and Oriented X 3 Medical Decision Making ED Course and Treatment: 01/03/18 13:31 Impression: Patient is a 22 year old female who wants a wound evaluation s/p I&D. Differential Diagnosis included but are not limited to: Wound check Plan: -- repacking wound -- Wound check again in 2 days. Prior Visits: Notes and results from previous visits were reviewed. Progress Notes: 01/03/18 13:40 PROCEDURE: WOUND CARE Performed by the emergency provider Consent: Informed consent, after discussion of the risks, benefits, and alternatives to the procedure was obtained. Timeout: A timeout to verify the correct patient, procedure, and site was performed. Indication: wound s/p cyst removal. Procedure Site: Midline Gluteal cleft Length: 3mm Procedure: The site was dressed with clean, dry, sterile dressing. Post-procedure: The patient tolerated the procedure well and there were no complications. - Scribe Statement Rupesh Khan Provider Scribe Attestation: All medical record entries made by the Scribe were at my direction and personally dictated by me. I have reviewed the chart and agree that the record accurately reflects my personal performance of the history, physical exam, medical decision making, and the department course for this patient. I have also personally directed, reviewed, and agree with the discharge instructions and disposition. Disposition/Present on Arrival - Present on Arrival Any Indicators Present on Arrival: No History of DVT/PE: No History of Uncontrolled Diabetes: No Urinary Catheter: No History of Decub. Ulcer: No History Surgical Site Infection Following: None - Disposition Have Diagnosis and Disposition been Completed?: Yes Diagnosis: Wound check, abscess Disposition: HOME/ ROUTINE Disposition Time: 13:50 Patient Plan: Discharge Condition: STABLE Discharge Instructions (ExitCare): Skin Abscess Referrals: [facility] [Outside] - Follow up with primary Forms: [employer] ([place]ic)
[2018-01-03 13:53] VITALS: BP 121/78; PULSE 66; RESP 17; O2SAT 100
== END 2018-01-03 13:53 | disposition home or self-care (01) ==
LOC: ED 12:31
DX: Z51.89 Encounter for other specified aftercare (principal); L02.91 Cutaneous abscess, unspecified

== ENCOUNTER 2018-07-19 18:16 | Emergency (ER) | payer OTHER ==
[2018-07-19 18:17] VITALS: BMI 33.5
[2018-07-19 18:38] VITALS: BP 139/71; PULSE 85; TEMP 98.3
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
[2018-07-19 21:18] VITALS: RESP 18; O2SAT 99
--- NOTE | 2018-07-20 09:12 | RAD ---
Date of service: 07/19/2018 PROCEDURE: Cervical Spine Radiographs. HISTORY: Pain. COMPARISON: None available. FINDINGS: BONES: Alignment maintained. No fracture. Dens Intact. Mild reversal of the normal lordotic curvature DISC SPACES: Normal. SOFT TISSUES: Normal. No prevertebral soft tissue swelling. OTHER FINDINGS: None. IMPRESSION: No acute findings
--- NOTE | 2018-07-20 09:12 | RAD ---
PROCEDURE: Right Hand Radiographs. HISTORY: hand pain COMPARISON: None. FINDINGS: BONES: Normal. No fracture. JOINTS: Normal. No osteoarthritic changes. SOFT TISSUES: Normal. OTHER FINDINGS: None. IMPRESSION: Normal right hand radiographs.
== END 2018-07-19 21:16 | disposition home or self-care (01) ==
LOC: ED 18:16
DX: S16.1XXA Strain of muscle, fascia and tendon at neck level, initial encounter (principal); V49.50XA Passenger injured in collision with unspecified motor vehicles in traffic accident, initial encounter; M79.641 Pain in right hand; M25.511 Pain in right shoulder
CPT/HCPCS: 72050; 73130; 96372; 99283; J1885

== ENCOUNTER 2018-10-15 23:51 | Emergency (ER) | payer SELFPAY ==
[2018-10-15 23:51] VITALS: BMI 33.5
[2018-10-16 01:37] VITALS: TEMP 98.2
[2018-10-16] MEDS ORDERED: Lidocaine 5% Patch TD ONE (01:50)
[2018-10-16 02:13] LABS: URINE BILIRUBIN NEGATIVE (NEGATIVE); URINE BLOOD MODERATE (NEGATIVE); URINE GLUCOSE (UA) NEGATIVE (NEGATIVE); URINE LEUKOCYTE ESTERASE LARGE Leu/uL (NEGATIVE); URINE PROTEIN 100 mg/dL (<30 mg/dL)
[2018-10-16 02:14] LABS: URINE APPEARANCE CLOUDY (CLEAR); URINE COLOR YELLOW (YELLOW)
--- NOTE | 2018-10-16 02:26 | ED PDOC ---
Arrival/HPI - General Historian: Patient - History of Present Illness Narrative History of Present Illness (Text): 10/16/18 02:23 23 year old female, whose past medical history includes renal cysts, presents to the emergency department for lower back pain, since 3 days. Patient also informs of having dysuria and hematuria. Patient states she also has superpubic fullness. Patient informs she is unable to completely evacuate the bladder. Patient informs last menstruation was last week of September. Patient denies any fevers, chills, headache, dizziness, chest pain, shortness of breath, cough, or any other complaint. Time/Duration: < week (3 days) Symptom Onset: Gradual Symptom Course: Unchanged Quality: Fullness Activities at Onset: Light Context: Home <Kishan Lara - Last Filed: 10/16/18 02:49> <Anai Nam PA-C - Last Filed: 10/18/18 16:31> - General Chief Complaint: Female Genitourinary Time Seen by Provider: 10/16/18 01:15 Past Medical History - Provider Review Nursing Documentation Reviewed: Yes - Infectious Disease Hx of Infectious Diseases: None - Tetanus Immunization Tetanus Immunization: Unknown - Cardiac Hx Cardiac Disorders: No Hx Angina: No - Pulmonary Hx Respiratory Disorders: No - Neurological Hx Neurological Disorder: Yes Other/Comment: Brain Aneurysm - HEENT Hx HEENT Disorder: No - Renal Hx Renal Disorder: Yes (hydronephrosis) - Endocrine/Metabolic Hx Endocrine Disorders: No - Hematological/Oncological Hx Blood Disorders: No Hx Cancer: No - Integumentary Hx Dermatological Disorder: No - Musculoskeletal/Rheumatological Hx Musculoskeletal Disorders: No - Gastrointestinal Hx Gastrointestinal Disorders: No - Genitourinary/Gynecological Hx Genitourinary Disorders: No Hx Sexually Transmitted Diseases: No - Psychiatric Hx Depression: Yes Hx Emotional Abuse: No Hx Physical Abuse: No Hx Substance Use: No - Past Surgical History Past Surgical History: No Previous - Anesthesia Hx Anesthesia: No Hx Anesthesia Reactions: No Hx Malignant Hyperthermia: No - Suicidal Assessment Feels Threatened In Home Enviroment: No <Kishan Lara - Last Filed: 10/16/18 02:49> Family/Social History - Physician Review Nursing Documentation Reviewed: Yes Family/Social History: No Known Family HX Smoking Status: Never Smoked Hx Alcohol Use: No Hx Substance Use: No Hx Substance Use Treatment: No <AmilcarjeancarlosannaKishan - Last Filed: 10/16/18 02:49> Allergies/Home Meds <JaneKishan - Last Filed: 10/16/18 02:49> <Anai Nam PA-C - Last Filed: 10/18/18 16:31> Allergies/Adverse Reactions: Allergies No Known Allergies Allergy (Verified 07/19/18 18:31) Review of Systems - Physician Review All systems were reviewed & negative as marked: Yes - Review of Systems Constitutional: absent: Fevers, Night Sweats Respiratory: absent: SOB, Cough Cardiovascular: absent: Chest Pain Gastrointestinal: Abdominal Pain Genitourinary Female: Dysuria, Hematuria Neurological: absent: Headache, Dizziness <Kishan Lara - Last Filed: 10/16/18 02:49> Physical Exam Vital Signs Reviewed: Yes Vital Signs Temp Pulse Resp BP Pulse Ox 10/16/18 01:37 98.2 F 98 H 18 124/72 98 Temperature: Afebrile Blood Pressure: Normal Pulse: Regular Respiratory Rate: Normal Appearance: Positive for: Well-Appearing, Non-Toxic, Comfortable Pain Distress: None Mental Status: Positive for: Alert and Oriented X 3 - Systems Exam Respiratory/Chest: Present: Clear to Auscultation, Good Air Exchange. No: Respiratory Distress, Accessory Muscle Use Cardiovascular: Present: Regular Rate and Rhythm, Normal S1, S2. No: Murmurs Abdomen: No: Tenderness, Distention, Peritoneal Signs Back: Present: CVA Tenderness (Mild left sided CVA tenderness) <Kishan Lara - Last Filed: 10/16/18 02:49> Vital Signs Temp Pulse Resp BP Pulse Ox 10/16/18 03:04 68 14 117/84 100 10/16/18 01:37 98.2 F 98 H 18 124/72 98 <Anai Nam PA-C - Last Filed: 10/18/18 16:31> Medical Decision Making ED Course and Treatment: 10/16/18 02:29 Impression: 23 year old female presents with back pain and dysuria Plan: -- Valium -- Toradol -- Lipoderm -- Urine cultures -- POC test -- Reassess and disposition Prior Visits: Notes and results from previous visits were reviewed. Progress Notes: - Lab Interpretations Lab Results: Urine Color Yellow (YELLOW) 10/16/18 02:00 Urine Appearance Cloudy (CLEAR) 10/16/18 02:00 Urine pH 7.0 (4.7-8.0) 10/16/18 02:00 Ur Specific [place] 1.025 (1.005-1.035) 10/16/18 02:00 Urine Protein 100 mg/dL (<30 mg/dL) H 10/16/18 02:00 Urine Glucose (UA) Negative mg/dL (NEGATIVE) 10/16/18 02:00 Urine Ketones Trace mg/dL (NEGATIVE) H 10/16/18 02:00 Urine Blood Moderate (NEGATIVE) H 10/16/18 02:00 Urine Nitrate Positive (NEGATIVE) H 10/16/18 02:00 Urine Bilirubin Negative (NEGATIVE) 10/16/18 02:00 Urine Urobilinogen 1.0 E.U./dL (<1 E.U./dL) H 10/16/18 02:00 Ur Leukocyte Esterase Large Merlene/uL (NEGATIVE) H 10/16/18 02:00 - Medication Orders Current Medication Orders: Discontinued Medications Diazepam (Valium) 5 mg PO ONCE ONE; Protocol Stop: 10/16/18 01:51 Last Admin: 10/16/18 02:02 Dose: 5 mg Ketorolac Tromethamine (Toradol) 60 mg IM STAT STA Stop: 10/16/18 01:51 Last Admin: 10/16/18 02:02 Dose: 60 mg MAR Pain Assessment Document 10/16/18 02:02 CNR (Rec: 10/16/18 02:02 CNR [id number]) Pain Reassessment Is this a pain reassessment? No IM Administration Charges Document 10/16/18 02:02 CNR (Rec: 10/16/18 02:02 CNR [id number]) Injection Site MAR Injection Site Left Gluteus Pepe Charges for Administration # of IM Administrations 1 Lidocaine (Lidoderm) 1 ea TD ONCE ONE Stop: 10/16/18 01:51 Last Admin: 10/16/18 02:01 Dose: 1 ea MAR Transdermal Patch Site Document 10/16/18 02:01 CNR (Rec: 10/16/18 02:02 CNR [id number]) Transdermal Patch Site Transdermal Patch Site Left Lower Back <Kishan Lara - Last Filed: 10/16/18 02:49> - Lab Interpretations Microbiology Results: Microbiology Results 10/16/18 02:00 Urine Random Urine Culture - Final Enterobacter Aerogenes Lab Results: Urine Color Yellow (YELLOW) 10/16/18 02:00 Urine Appearance Cloudy (CLEAR) 10/16/18 02:00 Urine pH 7.0 (4.7-8.0) 10/16/18 02:00 Ur Specific Newsoms 1.025 (1.005-1.035) 10/16/18 02:00 Urine Protein 100 mg/dL (<30 mg/dL) H 10/16/18 02:00 Urine Glucose (UA) Negative mg/dL (NEGATIVE) 10/16/18 02:00 Urine Ketones Trace mg/dL (NEGATIVE) H 10/16/18 02:00 Urine Blood Moderate (NEGATIVE) H 10/16/18 02:00 Urine Nitrate Positive (NEGATIVE) H 10/16/18 02:00 Urine Bilirubin Negative (NEGATIVE) 10/16/18 02:00 Urine Urobilinogen 1.0 E.U./dL (<1 E.U./dL) H 10/16/18 02:00 Ur Leukocyte Esterase Large Merlene/uL (NEGATIVE) H 10/16/18 02:00 Urine RBC 0 - 2 /hpf (0-2) 10/16/18 02:00 Urine WBC 20 - 25 /hpf (0-6) H 10/16/18 02:00 Ur Epithelial Cells 0 - 2 /hpf (0-5) 10/16/18 02:00 Urine Bacteria Many /hpf (NONE) 10/16/18 02:00 - Medication Orders Current Medication Orders: Discontinued Medications Ciprofloxacin (Cipro) 500 mg PO ONCE STA; Protocol Stop: 10/16/18 02:48 Last Admin: 10/16/18 02:54 Dose: 500 mg Diazepam (Valium) 5 mg PO ONCE ONE; Protocol Stop: 10/16/18 01:51 Last Admin: 10/16/18 02:02 Dose: 5 mg Ketorolac Tromethamine (Toradol) 60 mg IM STAT STA Stop: 10/16/18 01:51 Last Admin: 10/16/18 02:02 Dose: 60 mg MAR Pain Assessment Document 10/16/18 02:02 CNR (Rec: 10/16/18 02:02 CNR [id number]) Pain Reassessment Is this a pain reassessment? No IM Administration Charges Document 10/16/18 02:02 CNR (Rec: 10/16/18 02:02 CNR [id number]) Injection Site MAR Injection Site Left Gluteus Pepe Charges for Administration # of IM Administrations 1 Lidocaine (Lidoderm) 1 ea TD ONCE ONE Stop: 10/16/18 01:51 Last Admin: 10/16/18 02:01 Dose: 1 ea MAR Transdermal Patch Site Document 10/16/18 02:01 CNR (Rec: 10/16/18 02:02 CNR [id number]) Transdermal Patch Site Transdermal Patch Site Left Lower Back <Anai Nam PA-C - Last Filed: 10/18/18 16:31> - Scribe Statement The provider has reviewed the documentation as recorded by the Alethea Chester Provider Scribe Attestation: All medical record entries made by the Scribe were at my direction and personally dictated by me. I have reviewed the chart and agree that the record accurately reflects my personal performance of the history, physical exam, medical decision making, and the department course for this patient. I have also personally directed, reviewed, and agree with the discharge instructions and disposition. <Kishan Lara - Last Filed: 10/16/18 02:49> Disposition/Present on Arrival - Present on Arrival Any Indicators Present on Arrival: No History of DVT/PE: No History of Uncontrolled Diabetes: No Urinary Catheter: No History of Decub. Ulcer: No History Surgical Site Infection Following: None - Disposition Have Diagnosis and Disposition been Completed?: Yes Disposition Time: 02:49 Patient Plan: Discharge <Kishan Lara - Last Filed: 10/16/18 02:49> - Notes Notes (Text): 10/18/18 16:29 Urine cx +enterobacter, sensitive to cipro and bactrim, better sensitivity to bactrim. Pt called, message left to call ER back. Pt was Rx cipro. Consider changing to bactrim. <Anai Nam PA-C - Last Filed: 10/18/18 16:31> - Disposition Diagnosis: Pyelonephritis Disposition: HOME/ ROUTINE Condition: STABLE Discharge Instructions (ExitCare): Urinary Tract Infection, Adult (DC), Kidney Infection (DC) Print Language: SOUTH AFRICAN Additional Instructions: All medical record entries made by the Scribe were at my direction and personally dictated by me. I have reviewed the chart and agree that the record accurately reflects my personal performance of the history, physical exam, medical decision making, and the department course for this patient. I have also personally directed, reviewed, and agree with the discharge instructions and disposition. Please take medication as prescribed Please follow up with your PCP Try to schedule an appointment with a urologist Prescriptions: Ciprofloxacin [Cipro] 500 mg PO BID 7 Days #14 tab Referrals: Jose Juan Burt MD [Primary Care Provider] - Follow up with primary Homer Nguyen MD [Staff Provider] - Follow up with primary Saulo Bedolla MD [Staff Provider] - Follow up with primary Forms: [employer] (Telugu)
[2018-10-16 02:27] LABS: URINE BACTERIA MANY /hpf; URINE EPITHELIAL CELLS 0 - 2 /hpf (0-5); URINE RBC 0 - 2 /hpf (0-2); URINE WBC 20 - 25 /hpf (0-6)
[2018-10-16 03:06] VITALS: BP 117/84; PULSE 68; RESP 14; O2SAT 100
== END 2018-10-16 03:04 | disposition home or self-care (01) ==
LOC: ED 23:51
DX: N12 Tubulo-interstitial nephritis, not specified as acute or chronic (principal)
CPT/HCPCS: 81001; 81025; 87086; 96372; 99283; J1885

== ENCOUNTER 2018-11-06 23:11 | Emergency (ER) | payer SELFPAY ==
[2018-11-06 23:11] VITALS: BMI 33.5
[2018-11-06 23:53] VITALS: RESP 18
[2018-11-07] MEDS ORDERED: Tmp-Smz 800 mg-160 mg DS Tab PO STA (00:01)
[2018-11-07 00:31] LABS: PH,URINE 6.5 (4.7-8.0); URINE BILIRUBIN NEGATIVE (NEGATIVE); URINE BLOOD MODERATE (NEGATIVE); URINE GLUCOSE (UA) NEGATIVE (NEGATIVE); URINE LEUKOCYTE ESTERASE MODERATE Leu/uL (NEGATIVE); URINE PROTEIN 100 mg/dL (<30 mg/dL); URINE UROBILINOGEN 0.2 E.U./dL (<1 E.U./dL)
[2018-11-07 00:34] LABS: URINE APPEARANCE CLOUDY (CLEAR); URINE COLOR YELLOW (YELLOW)
--- NOTE | 2018-11-07 00:41 | ED PDOC ---
Arrival/HPI - General Historian: Patient - History of Present Illness Narrative History of Present Illness (Text): 11/07/18 00:49 23-year-old female complaining of discomfort to the pelvic area radiating to her lower back associated with nausea, dysuria, urinary frequency which started yesterday. Patient states that she was seen here a few weeks ago and was diagnosed and treated for a UTI, states that she was given a prescription for an antibiotic which she completed, and then her symptoms had resolved, states that after reports she did not follow-up with her PMD since she felt significantly better. She states that her symptoms today are very similar to the symptoms she had several weeks ago when she was treated with the UTI. Otherwise reports no fever, chills, nausea, vomiting. PMD Stacy <Anai Nam PA-C - Last Filed: 11/07/18 00:48> <Matt Cohen - Last Filed: 11/07/18 00:54> - General Chief Complaint: Female Genitourinary Time Seen by Provider: 11/06/18 23:17 Past Medical History - Infectious Disease Hx of Infectious Diseases: None - Tetanus Immunization Tetanus Immunization: Unknown - Cardiac Hx Cardiac Disorders: No Hx Angina: No - Pulmonary Hx Respiratory Disorders: No - Neurological Hx Neurological Disorder: Yes Other/Comment: Brain Aneurysm - HEENT Hx HEENT Disorder: No - Renal Hx Renal Disorder: Yes (hydronephrosis) - Endocrine/Metabolic Hx Endocrine Disorders: No - Hematological/Oncological Hx Blood Disorders: No Hx Cancer: No - Integumentary Hx Dermatological Disorder: No - Musculoskeletal/Rheumatological Hx Musculoskeletal Disorders: No - Gastrointestinal Hx Gastrointestinal Disorders: No - Genitourinary/Gynecological Hx Genitourinary Disorders: No Hx Sexually Transmitted Diseases: No - Psychiatric Hx Depression: Yes Hx Emotional Abuse: No Hx Physical Abuse: No Hx Substance Use: No - Past Surgical History Past Surgical History: No Previous - Anesthesia Hx Anesthesia: No Hx Anesthesia Reactions: No Hx Malignant Hyperthermia: No - Suicidal Assessment Feels Threatened In Home Enviroment: No <Anai Nam PA-C - Last Filed: 11/07/18 00:48> Family/Social History Family/Social History: No Known Family HX Smoking Status: Never Smoked Hx Alcohol Use: No Hx Substance Use: No Hx Substance Use Treatment: No <Anai Nam PA-C - Last Filed: 11/07/18 00:48> Allergies/Home Meds <Anai Nam PA-C - Last Filed: 11/07/18 00:48> <Matt Cohen - Last Filed: 11/07/18 00:54> Allergies/Adverse Reactions: Allergies No Known Allergies Allergy (Verified 11/06/18 23:36) Review of Systems - Review of Systems Constitutional: absent: Fatigue, Fevers Respiratory: absent: SOB, Cough Cardiovascular: absent: Chest Pain, Palpitations Gastrointestinal: absent: Abdominal Pain, Diarrhea, Nausea, Vomiting Genitourinary Female: Dysuria, Frequency. absent: Hematuria Musculoskeletal: absent: Arthralgias, Back Pain, Neck Pain Skin: absent: Rash, Skin Lesions <Anai Nam PA-C - Last Filed: 11/07/18 00:48> Physical Exam Vital Signs Temp Pulse Resp BP Pulse Ox 11/06/18 23:45 100.1 F H 95 H 18 142/58 L 100 Temperature: Afebrile Blood Pressure: Normal Pulse: Regular Respiratory Rate: Normal Appearance: Positive for: Well-Appearing, Non-Toxic, Comfortable Pain Distress: None Mental Status: Positive for: Alert and Oriented X 3 - Systems Exam Head: Present: Atraumatic, Normocephalic Pupils: Present: PERRL Extroacular Muscles: Present: EOMI Conjunctiva: Present: Normal Mouth: Present: Moist Mucous Membranes Neck: Present: Normal Range of Motion Respiratory/Chest: Present: Clear to Auscultation, Good Air Exchange. No: Respiratory Distress, Accessory Muscle Use Cardiovascular: Present: Regular Rate and Rhythm, Normal S1, S2. No: Murmurs Abdomen: No: Tenderness, Distention, Peritoneal Signs Back: Present: Normal Inspection. No: CVA Tenderness, Midline Tenderness Upper Extremity: Present: Normal Inspection. No: Cyanosis, Edema Lower Extremity: Present: Normal Inspection. No: Edema Neurological: Present: GCS=15, CN II-XII Intact, Speech Normal Skin: Present: Warm, Dry, Normal Color. No: Rashes Psychiatric: Present: Alert, Oriented x 3, Normal Insight, Normal Concentration <Anai Nam PA-C - Last Filed: 11/07/18 00:48> Vital Signs Temp Pulse Resp BP Pulse Ox 11/06/18 23:45 100.1 F H 95 H 18 142/58 L 100 <Matt Cohen - Last Filed: 11/07/18 00:54> Medical Decision Making ED Course and Treatment: 11/07/18 00:35 Previous medical records reviewed, patient had a urine culture done on October 16, 2018 which showed positive Enterobacter sensitive to Bactrim. When patient was last seen here in the emergency room she was diagnosed with a UTI and prescribed Cipro which shows some sensitivity to Enterobacter. UA, urine culture sent. Urine hCG negative. Patient medicated with Tylenol, Pyridium and Bactrim p.o. On reevaluation, patient is lying in bed comfortably no acute distress. Patient appears well and is not ill-appearing. UA results discussed with the patient in great detail. Diagnosis of likely UTI discussed with the patient. Explained to the patient that she would be treated with Bactrim which is a far superior antibiotic compared to Cipro based on her last urine culture, which patient [place]our[place] states she understands. Patient states that she feels comfortable with the plan going home. Advised to follow up with primary care physician referral provided in 1-2 days without fail. Advised to take medication as prescribed. Return to the emergency room at any time for any new or worsening symptoms. Patient states she fully agrees with and understands discharge instructions. States that she agrees with the plan and disposition. Verbalized and repeated discharge instructions and plan. I have given the patient opportunity to ask any additional questions. - Medication Orders Current Medication Orders: Discontinued Medications Acetaminophen (Tylenol 325mg Tab) 650 mg PO STAT STA Stop: 11/07/18 00:07 Last Admin: 11/07/18 00:13 Dose: 650 mg Phenazopyridine HCl (Pyridium) 200 mg PO ONCE ONE Stop: 11/07/18 00:02 Last Admin: 11/07/18 00:13 Dose: 200 mg Trimethoprim/Sulfamethoxazole (Bactrim Ds Tab) 1 tab PO STAT STA; Protocol Stop: 11/07/18 00:02 Last Admin: 11/07/18 00:13 Dose: 1 tab <Anai Nam PA-C - Last Filed: 11/07/18 00:48> - Lab Interpretations Lab Results: Urine Color Yellow (YELLOW) 11/06/18 23:55 Urine Appearance Cloudy (CLEAR) 11/06/18 23:55 Urine pH 6.5 (4.7-8.0) 11/06/18 23:55 Ur Specific [place] >= 1.030 (1.005-1.035) 11/06/18 23:55 Urine Protein 100 mg/dL (<30 mg/dL) H 11/06/18 23:55 Urine Glucose (UA) Negative mg/dL (NEGATIVE) 11/06/18 23:55 Urine Ketones Negative mg/dL (NEGATIVE) 11/06/18 23:55 Urine Blood Moderate (NEGATIVE) H 11/06/18 23:55 Urine Nitrate Positive (NEGATIVE) H 11/06/18 23:55 Urine Bilirubin Negative (NEGATIVE) 11/06/18 23:55 Urine Urobilinogen 0.2 E.U./dL (<1 E.U./dL) 03 23:55 Ur Leukocyte Esterase Moderate Merlene/uL (NEGATIVE) H 11/06/18 23:55 Urine RBC 1 - 3 /hpf (0-2) H 11/06/18 23:55 Urine WBC 20 - 25 /hpf (0-6) H 11/06/18 23:55 Ur Epithelial Cells 1 - 3 /hpf (0-5) 11/06/18 23:55 Urine Bacteria Many /hpf (NONE) 11/06/18 23:55 - Medication Orders Current Medication Orders: Discontinued Medications Acetaminophen (Tylenol 325mg Tab) 650 mg PO STAT STA Stop: 11/07/18 00:07 Last Admin: 11/07/18 00:13 Dose: 650 mg Phenazopyridine HCl (Pyridium) 200 mg PO ONCE ONE Stop: 11/07/18 00:02 Last Admin: 11/07/18 00:13 Dose: 200 mg Trimethoprim/Sulfamethoxazole (Bactrim Ds Tab) 1 tab PO STAT STA; Protocol Stop: 11/07/18 00:02 Last Admin: 11/07/18 00:13 Dose: 1 tab <Matt Cohen - Last Filed: 11/07/18 00:54> - PA / DISPATCHER REFINERY / Resident Statement / has reviewed & agrees with the documentation as recorded. <Anai Nam PA-C - Last Filed: 11/07/18 00:48> - PA / DISPATCHER REFINERY / Resident Statement / has reviewed & agrees with the documentation as recorded. <VickiMatt - Last Filed: 11/07/18 00:54> Disposition/Present on Arrival - Present on Arrival Any Indicators Present on Arrival: No History of DVT/PE: No History of Uncontrolled Diabetes: No Urinary Catheter: No History of Decub. Ulcer: No History Surgical Site Infection Following: None - Disposition Have Diagnosis and Disposition been Completed?: Yes Disposition Time: 00:30 Patient Plan: Discharge <Anai Nam PA-C - Last Filed: 11/07/18 00:48> <VickiMatt - Last Filed: 11/07/18 00:54> - Disposition Diagnosis: UTI (urinary tract infection) Disposition: HOME/ ROUTINE Patient Problems: Current Active Problems Problem Status Onset UTI (urinary tract infection) Acute Condition: STABLE Discharge Instructions (ExitCare): Urinary Tract Infections in Adults Additional Instructions: Thank you for letting us take care of you today. You were treated for urinary tract infection. The emergency medical care you received today was directed at your acute symptoms. If you were prescribed any medication, please fill it and take as directed. It may take several days for your symptoms to resolve. Return to the Emergency Department if your symptoms worsen, do not improve, or if you have any other problems. Please contact your doctor in 2 days for re-evaluation and follow up / or call one of the physicians/clinics you have been referred to that are listed on the Patient Visit Information form that is included in your discharge packet. Bring any paperwork you were given at discharge with you along with any medications you are taking to your follow up visit. Our treatment cannot replace ongoing medical care by a primary care provider (PCP) outside of the emergency department. Thank you for allowing the [facility] team to be part of your care today. If you had a urine culture: It will take several days for the results, if any change in treatment is needed we will contact you. Prescriptions: Phenazopyridine [Pyridium] 200 mg PO BID #6 tab Sulfamethoxazole/Trimethoprim [Bactrim DS 800 mg-160 mg] 1 tab PO BID #14 tab Referrals: [facility] [place] [Outside] - Follow up with primary Forms: [employer] (Maltese), WORK NOTE
[2018-11-07 00:43] LABS: URINE BACTERIA MANY /hpf; URINE WBC 20 - 25 /hpf (0-6)
[2018-11-07 01:38] VITALS: BP 132/72; PULSE 88; TEMP 98.4; O2SAT 99
== END 2018-11-07 01:00 | disposition home or self-care (01) ==
LOC: ED 23:11
DX: N39.0 Urinary tract infection, site not specified (principal)